=== PATIENT | female | born 1960 | race Caucasian/White ===

== ENCOUNTER 2017-01-21 11:32 | Emergency (ER) | payer OTHER ==
[2017-01-21 11:36] VITALS: BP 139/82; PULSE 86; TEMP 98.9; BMI 22.6
--- NOTE | 2017-01-21 11:58 | PDOC ---
History of Present Illness - General Chief Complaint: Pain Stated Complaint: LT FOOT PAIN Time Seen by Provider: 01/21/17 11:38 History Source: Patient Exam Limitations: No Limitations - History of Present Illness Initial Comments: 01/21/17 11:55 56 yr female with pain to left 5th toe and the bottom of foot since this AM. Pt denies injury denies wearing different shoes yesterday. no history of gout, her brother has gout. no past trauma noted. 01/21/17 12:48 Occurred: reports: this morning Severity: reports: mild Pain Location: reports: lower extremity (left toe foot ) Past History - Past Medical History Allergies/Adverse Reactions: Allergies Allergy/AdvReac Type Severity Reaction Status Date / Time Penicillins Allergy Mild Hives Verified 01/21/17 11:36 Home Medications: Ambulatory Orders Indomethacin [Indocin -] 50 mg PO TID PRN #21 capsule 01/21/17 Asthma: Yes - Psycho/Social/Smoking Cessation Hx Anxiety: No Suicidal Ideation: No Smoking History: Never smoked Hx Alcohol Use: No Drug/Substance Use Hx: No Substance Use Type: None Trauma Specific PMHX - Complaint Specific PMHX Arthritis: No Back Injury: No Neck Injury: No Hx Sacro Iliac Joint Dysfunction: No Review of Systems - Review of Systems Able to Perform ROS?: Yes Is the patient limited Israeli proficient: No Constitutional: No: Symptoms Reported HEENTM: No: Symptoms Reported Respiratory: No: Symptoms reported Cardiac (ROS): No: Symptoms Reported ABD/GI: No: Symptoms Reported : No: Symptoms Reported Musculoskeletal: Yes: Symptoms Reported *Physical Exam - Vital Signs Last Vital Signs Temp Pulse Resp BP Pulse Ox 98.9 F 86 20 139/82 97 01/21/17 11:33 01/21/17 11:33 01/21/17 11:33 01/21/17 11:33 01/21/17 11:33 - Physical Exam General Appearance: Yes: Nourished, Appropriately Dressed HEENT: positive: EOMI, [place]ST[place], TMs Normal, Pharynx Normal Neck: positive: Supple Respiratory/Chest: positive: Lungs Clear, Normal Breath Sounds Cardiovascular: positive: Regular Rhythm, Regular Rate Musculoskeletal: positive: Normal Inspection Extremity: positive: Normal Capillary Refill, Normal Range of Motion, Tender ( left base 5th toe no deformity ), Erythema Integumentary: positive: Dry, Warm ED Treatment Course - RADIOLOGY Radiology Studies Ordered: Category Date Time Status FOOT-LEFT [RAD] Stat Radiology 01/21/17 11:49 Ordered Medical Decision Making - Medical Decision Making 01/21/17 12:50 cc: swelling, redness to base of fifth toe and bottom of foot skin is intact no break in skin, no evidence of fungus or infection will xray and will draw uric acid r/o gout inflamation xray is negative for acute fracture uric acid is not elevated will treat with NSAID supportive care and follow up with internet systems administrator. pt agrees with plan of care all questions asked and answered. *DC/Admit/Observation/Transfer Diagnosis at time of Disposition: Toe pain, left - Discharge Dispostion Disposition: HOME Condition at time of disposition: Good - Prescriptions Prescriptions: Indomethacin [Indocin -] 50 mg PO TID PRN #21 capsule PRN Reason: Pain - Referrals Referrals: Claire Pfeiffer [Primary Care Provider] - Wilmar Moe MD [Staff Physician] - - Patient Instructions Additional Instructions: elevate and apply warm compresses to the toe every 3hrs for 15-20 minutes take the indocin as directed for pain and swelling follow with the internet systems administrator for follow up
== END 2017-01-21 13:00 | disposition home or self-care (01) ==
LOC: JERFT 11:32
DX: M79.675 Pain in left toe(s) (principal)
CPT/HCPCS: 36415; 73630-TC-LT; 84550; 99281-25

== ENCOUNTER 2021-11-13 19:27 | Inpatient (IN) | payer OTHER ==
[2021-11-13] MEDS ORDERED: MAG HYDROX/AL HYDROX/SIMETH -MYLANTA- ORAL SUSPENSION PO ONE (20:34)
[2021-11-13] MEDS ORDERED: ONDANSETRON 4 MG/2 ML VIAL IVPUSH ONE (20:34)
[2021-11-13] MEDS ORDERED: FAMOTIDINE 20 MG TABLET PO ONE (20:34)
[2021-11-13] MEDS ORDERED: SODIUM CHLORIDE 1,000 ML IV STA (20:34)
[2021-11-13] MEDS ORDERED: ACETAMINOPHEN 325 MG TABLET (FP) PO ONE (20:34)
[2021-11-13] MEDS ORDERED: ACETAMINOPHEN 325 MG TABLET (FP) ONE (20:43)
[2021-11-13] MEDS ORDERED: FAMOTIDINE 20 MG TABLET ONE (20:43)
[2021-11-13] MEDS ORDERED: MAG HYDROX/AL HYDROX/SIMETH 30 ML UNIT-DOSE CUP ONE (20:44)
[2021-11-13] MEDS ORDERED: ONDANSETRON 4 MG/2 ML VIAL ONE (20:44)
[2021-11-13 21:26] LABS: BASO % 0.5 % (0-2.0); EOS % 0.1 % (0-4.5); HEMATOCRIT 41.7 % (32.4-45.2); HEMOGLOBIN 14.1 GM/dL (10.7-15.3); LYMPH % 9.2 % (8-40); MCH 29.3 pg (25.7-33.7); MCHC 33.8 g/dl (32.0-36.0); MEAN CELL VOLUME 86.5 fl (80-96); MEAN PLT VOLUME 8.6 fl (7.5-11.1); MONO % 4.1 % (3.8-10.2); NEUT % 86.1 % (42.8-82.8); PLATELET COUNT 197 10^3/uL (134-434); RBC 4.82 M/mm3 (3.60-5.2); RDW 12.5 % (11.6-15.6); WHITE BLOOD COUNT 10.1 K/mm3 (4.0-10.0)
[2021-11-13 21:45] LABS: BLOOD UREA NITROGEN 12.4 mg/dL (7-18); CALCIUM 9.4 mg/dL (8.5-10.1)
[2021-11-13 21:46] LABS: ALBUMIN 4.2 g/dl (3.4-5.0)
[2021-11-13 21:49] LABS: CREATININE 0.8 mg/dL (0.55-1.3)
[2021-11-13 21:50] LABS: BILIRUBIN,TOTAL 0.9 mg/dL (0.2-1); TOT PROT 7.9 g/dl (6.4-8.2)
[2021-11-13] MEDS: SODIUM CHLORIDE 1,000 ML IV SCH (23:03)
[2021-11-13 23:20] LABS: INR 1.11 (0.83-1.09); PROTHROMBIN TIME (PATIENT) 12.8 SEC (9.7-13.0)
[2021-11-13 23:22] LABS: ACTIVATED PTT 27.7 SECONDS (25.2-36.5)
[2021-11-14 01:56] VITALS: BMI 25.3
[2021-11-14] MEDS: SODIUM CHLORIDE 1,000 ML IV SCH (05:42)
[2021-11-14 09:25] LABS: PH,URINE 5.5 (5.0-8.0); URINE APPEARANCE CLEAR; URINE BILIRUBIN NEGATIVE (NEGATIVE); URINE COLOR YELLOW; URINE GLUCOSE (UA) NEGATIVE (NEGATIVE); URINE KETONE NEGATIVE (NEGATIVE); URINE LEUK ESTERASE NEGATIVE (NEGATIVE); URINE NITRITE NEGATIVE (NEGATIVE); URINE PROTEIN NEGATIVE (NEGATIVE); URINE UROBILINOGEN 0.2 mg/dL (0.2-1.0)
[2021-11-14 09:32] LABS: HEMATOCRIT 37.8 % (32.4-45.2); HEMOGLOBIN 12.8 GM/dL (10.7-15.3); MCH 29.2 pg (25.7-33.7); MCHC 33.8 g/dl (32.0-36.0); MEAN CELL VOLUME 86.4 fl (80-96); MEAN PLT VOLUME 9.1 fl (7.5-11.1); PLATELET COUNT 172 10^3/uL (134-434); RBC 4.37 M/mm3 (3.60-5.2); RDW 12.6 % (11.6-15.6); WHITE BLOOD COUNT 9.3 K/mm3 (4.0-10.0)
[2021-11-14 09:55] LABS: BLOOD UREA NITROGEN 9.2 mg/dL (7-18); CALCIUM 8.8 mg/dL (8.5-10.1); MAGNESIUM 2.1 mg/dL (1.8-2.4)
[2021-11-14 09:56] LABS: ALBUMIN 3.5 g/dl (3.4-5.0)
[2021-11-14 09:58] LABS: CREATININE 0.7 mg/dL (0.55-1.3); PHOSPHOROUS 2.8 mg/dL (2.5-4.9)
[2021-11-14] MEDS ORDERED: HYDROCHLOROTHIAZIDE 12.5 MG CAPSULE (FP) PO SCH (10:00)
[2021-11-14 10:01] LABS: BILIRUBIN,TOTAL 1.3 mg/dL (0.2-1); TOT PROT 6.6 g/dl (6.4-8.2)
[2021-11-14] MEDS ORDERED: BUPIVACAINE HCL/PF 0.5% (5MG/ML) 10 ML VIAL ONE (10:58)
[2021-11-14] MEDS ORDERED: PROPOFOL 20 ML ONE ×4 (11:01→12:03)
[2021-11-14] MEDS ORDERED: ROCURONIUM BROMIDE 50 MG/5 ML SYRINGE ONE (11:02)
[2021-11-14] MEDS ORDERED: MIDAZOLAM HCL 2 MG/2 ML SINGLE DOSE VIAL ONE (11:03)
[2021-11-14] MEDS ORDERED: BUPIVACAINE HCL/PF 0.5% (5 MG/ML) 30 ML VIAL IJ ONE ×2 (12:09→12:45)
[2021-11-14] MEDS ORDERED: HYDROmorphone HCl 2 MG/ML VIAL ONE (12:11)
[2021-11-14] MEDS ORDERED: NEOSTIGMINE METHYLSULFATE 0.5 MG/ML - 10 ML MDV ONE (12:27)
[2021-11-14] MEDS ORDERED: SUGAMMADEX SODIUM 200 MG/2 ML VIAL ONE (12:51)
[2021-11-14] MEDS ORDERED: ACETAMINOPHEN 1000 MG/100 ML BAG IVPB ONE (13:08)
[2021-11-14] MEDS ORDERED: oxyCODONE HCL 5 MG TABLET PO PRN (13:11)
[2021-11-14] MEDS ORDERED: LACTATED RINGERS SOLUTION 1,000 ML IV SCH (13:15)
[2021-11-14] MEDS: LACTATED RINGERS SOLUTION 1,000 ML IV SCH (16:04)
[2021-11-14] MEDS: ACETAMINOPHEN 325 MG TABLET (FP) PO SCH (21:13)
[2021-11-14] MEDS ORDERED: LISINOPRIL 10 MG TABLET PO SCH ×2 (22:00)
[2021-11-15] MEDS: ACETAMINOPHEN 325 MG TABLET (FP) PO SCH ×2 (01:04→08:56)
[2021-11-15] MEDS: LACTATED RINGERS SOLUTION 1,000 ML IV SCH (05:08)
[2021-11-15 09:56] LABS: BASO % 0.1 % (0-2.0); HEMATOCRIT 35.7 % (32.4-45.2); HEMOGLOBIN 11.8 GM/dL (10.7-15.3); LYMPH % 9.5 % (8-40); MCH 28.7 pg (25.7-33.7); MEAN PLT VOLUME 9.2 fl (7.5-11.1); MONO % 4.1 % (3.8-10.2); NEUT % 86.3 % (42.8-82.8); PLATELET COUNT 161 10^3/uL (134-434); RBC 4.11 M/mm3 (3.60-5.2); RDW 12.9 % (11.6-15.6); WHITE BLOOD COUNT 7.8 K/mm3 (4.0-10.0)
[2021-11-15] MEDS ORDERED: HYDROCHLOROTHIAZIDE 12.5 MG CAPSULE (FP) PO SCH (10:00)
[2021-11-15 10:21] LABS: CALCIUM 8.7 mg/dL (8.5-10.1)
[2021-11-15 10:22] LABS: ALBUMIN 3.3 g/dl (3.4-5.0); BLOOD UREA NITROGEN 13.2 mg/dL (7-18); MAGNESIUM 2.2 mg/dL (1.8-2.4)
[2021-11-15 10:24] LABS: BILIRUBIN,TOTAL 1.1 mg/dL (0.2-1); TOT PROT 6.5 g/dl (6.4-8.2)
[2021-11-15 10:28] LABS: CREATININE 0.7 mg/dL (0.55-1.3)
[2021-11-15 14:07] VITALS: BP 130/70; PULSE 72; TEMP 98.8
== END 2021-11-15 14:50 | disposition home or self-care (01) | DRG 342 ==
LOC: JER 19:27 → JERBED 22:51 → J8W 11-14 00:48
PROVIDERS: ADMIT Internal Medicine; ATTEND Nurse Practitioner Family
PROC: 0DTJ4ZZ Resection of Appendix, Percutaneous Endoscopic Approach (ICD-10-PCS; principal; 2021-11-14 11:00)
DX: K35.80 Unspecified acute appendicitis (principal); J98.11 Atelectasis; J45.909 Unspecified asthma, uncomplicated; I10 Essential (primary) hypertension; R74.01 Elevation of levels of liver transaminase levels; E78.5 Hyperlipidemia, unspecified
CPT/HCPCS: 36415; 71046-TC-FY; 74177-TC; 80053; 81003; 82550; 83690; 83735; 84100; 84484; 85025; 85027; 85610; 85730; 86705; 86708; 86850; 86900; 86901; 87086; 87340; 87517; 87522; 88304-TC; 93005; 93010; 94760; 99285-25; C9803; Q9967; U0003; U0005

== ENCOUNTER 2021-11-21 10:13 | Emergency (ER) | payer OTHER ==
[2021-11-21 10:21] VITALS: BP 155/79; PULSE 72; TEMP 98; BMI 24.5
== END 2021-11-21 11:49 ==
LOC: JERFT 10:13
DX: R21 Rash and other nonspecific skin eruption (principal)
CPT/HCPCS: 99281-25